=== PATIENT | female | born 1930 | race Caucasian/White ===

== ENCOUNTER 2017-02-16 14:52 | Emergency (ER) | payer OTHER, MEDICAID ==
[~2017-02-16] VITALS: Ht 149.9 cm; Wt 70.0 kg
[~2017-02-16 14:52] MED LIST: ALBU8.5H3 INH; ALPR-475 PO; AMLO2.5T PO; ASPI-515 PO; ASPI325T4 PO; AZIT250T89 PO; BENZ200C40 PO; BRIN10DR RIGHTEYE; BUDE10.22 INH; CHOL10002 PO; CYAN1TAB39 PO; FAMO20TA7 PO; LEVO88TA32 PO; LISI-167 PO; LISI-170 PO; LISI-424 PO; LOVA20TA2 PO; MAGN400T36 PO; MELO-184 PO; OMEP-110 PO; OXYGEN INH; PRED10TA14 PO; PRED1DRO RIGHTEYE; TIOT18CA INH; [UNRECOGNIZED DRUG - REMARK] PO
[2017-02-16 14:57] VITALS: BP 143/85
[2017-02-16] MEDS ORDERED: SODIUM CHLORIDE FLUSH 10ML SYR IVF ONE (15:30)
[2017-02-16] MEDS ORDERED: ALBUTEROL/IPRATROPIUM 2.5MG/0.5MG, 3 ML NPPB SCH (15:30)
[2017-02-16 16:03] LABS: BLOOD UREA NITROGEN 13 mg/dL (7-18)
[2017-02-16 16:08] LABS: IS PT STATUS REG ER OR PRE ER? YES
[2017-02-16] MEDS ORDERED: ALBUTEROL/IPRATROPIUM 2.5MG/0.5MG, 3 ML ONE ×2 (16:25→16:26)
== END 2017-02-16 17:04 | disposition home or self-care (01) ==
LOC: ED 16:58
DX: J45.41 Moderate persistent asthma with (acute) exacerbation (principal); I10 Essential (primary) hypertension; J44.9 Chronic obstructive pulmonary disease, unspecified; Z86.73 Personal history of transient ischemic attack (TIA), and cerebral infarction without residual deficits; E03.9 Hypothyroidism, unspecified
CPT/HCPCS: 36415; 71020; 80048; 82040; 83880; 84484; 85025; 93005; 94640; 99285; J7512

== ENCOUNTER 2018-05-09 22:58 | Observation (INO) | payer OTHER, MEDICAID ==
[~2018-05-09] VITALS: Ht 149.9 cm; Wt 72.8 kg
[~2018-05-09 22:58] MED LIST changes: -ALBU8.5H3 INH; +ALBU8.5H8 INH; -AMLO2.5T PO; +AMLO2.5T3 PO; +ASPI325T17 PO; -ASPI325T4 PO; -BENZ200C40 PO; +BENZ200C48 PO; +LATA2.5D3 RIGHTEYE; -LEVO88TA32 PO; +LEVO88TA43 PO; -MELO-184 PO; +MELO15TA24 PO; +TIMO5DRO33 RIGHTEYE; +TOBR3.5O2 EACHEYE
[2018-05-09] MEDS ORDERED: ALBUTEROL/IPRATROPIUM 2.5MG/0.5MG, 3 ML ONE (23:21)
[2018-05-09] MEDS ORDERED: methylPREDNISolone SOD SUCC 125 MG/2 ML IVP ONE (23:30)
[2018-05-09] MEDS ORDERED: SODIUM CHLORIDE FLUSH 10ML SYR IVF ONE (23:30)
[2018-05-09] MEDS ORDERED: ALBUTEROL/IPRATROPIUM 2.5MG/0.5MG, 3 ML NPPB SCH (23:30)
[2018-05-09] MEDS ORDERED: SODIUM CHLORIDE 0.9% 1,000ML IVBOLUS ONE (23:30)
[2018-05-09] MEDS ORDERED: AMLO-264 PO (23:43)
[2018-05-09] MEDS ORDERED: ASPI-650 PO (23:43)
[2018-05-09] MEDS ORDERED: methylPREDNISolone SOD SUCC 125 MG/2 ML ONE (23:46)
[2018-05-09 23:52] LABS: BASOPHILS # (AUTO) 0.02 x10^3/uL (0-0.1); BASOPHILS % (AUTO) 0 % (0-1); EOSINOPHILS % (AUTO) 1 % (1-7); LYMPHOCYTES # (AUTO) 2.36 x10^3/uL (1-3.4); LYMPHOCYTES % (AUTO) 30 % (22-44); MD NO; MEAN CORPUSCULAR HEMOGLOBIN 28.3 pg (27.0-34.8); MEAN CORPUSCULAR HGB CONC 32.8 g/dL (32.4-35.8); MEAN CORPUSCULAR VOLUME 86.4 fL (80-100); MEAN PLATELET VOLUME 8.2 fL (7.4-10.4); MONOCYTES # (AUTO) 0.65 x10^3/uL (0.2-0.8); MONOCYTES % (AUTO) 8 % (2-9); NEUTROPHILS # (AUTO) 4.67 x10^3/uL (1.8-6.8); NEUTROPHILS % (AUTO) 60 % (42-75); PLATELET COUNT 218 x10^3/uL (130-400); RED BLOOD COUNT 4.47 x10^6/uL (3.82-5.3); RED CELL DISTRIBUTION WIDTH 18.7 % (9.6-15.2)
[2018-05-09 23:55] LABS: ALBUMIN 3.4 g/dL (3.4-5.0); ANION GAP 5 mmol/L (5-15); CALCIUM 8.5 mg/dL (8.5-10.1); CHLORIDE 113 mmol/L (98-107)
[2018-05-10] LABS: ALANINE AMINOTRANSFERASE 19 U/L (12-78); ALKALINE PHOSPHATASE 69 U/L (45-117); BILIRUBIN,TOTAL 0.5 mg/dL (0.2-1.0); TOTAL PROTEIN 6.5 g/dL (6.4-8.2); TROPONIN I < 0.015 ng/mL (0.000-0.045)
[2018-05-10] MEDS ORDERED: IBUPROFEN 600 MG TABLET PO PRN (01:30)
[2018-05-10] MEDS ORDERED: POLYETHYLENE GLYCOL 17 GM PACKET PO PRN (01:30)
[2018-05-10] MEDS ORDERED: LABETALOL 5MG/ML, 20ML IVPush PRN (01:30)
[2018-05-10] MEDS ORDERED: ONDANSETRON 2MG/ML, 2ML IVPush PRN (01:30)
[2018-05-10] MEDS ORDERED: ACETAMINOPHEN 325 MG TABLET PO PRN (01:30)
[2018-05-10 01:43] VITALS: BP 114/70
[2018-05-10 02:00] VITALS: BP 114/70
[2018-05-10] MEDS ORDERED: ALBUTEROL SULFATE 2.5 MG/3 ML NPPB PRN (02:00)
[2018-05-10] MEDS ORDERED: AMLODIPINE 2.5 MG TABLET PO ONE (02:30)
[2018-05-10] MEDS: HEPARIN 5,000 UNITS/ML, 1ML SQ SCH ×3 (02:35→18:26)
[2018-05-10] MEDS: LEVOTHYROXINE 100 MCG TABLET PO SCH (05:25)
[2018-05-10] MEDS: ASPIRIN 325 MG TABLET EC PO SCH (05:25)
[2018-05-10 05:38] LABS: TROPONIN I 0.015 ng/mL (0.000-0.045)
[2018-05-10] MEDS ORDERED: LEVOTHYROXINE 88 MCG TABLET PO SCH (06:00)
[2018-05-10] MEDS ORDERED: ALBUTEROL SULFATE 2.5 MG/3 ML NPPB SCH (07:00)
[2018-05-10 07:34] VITALS: BP 101/61
[2018-05-10] MEDS: MAGNESIUM OXIDE 400 MG TABLET PO SCH (09:57)
[2018-05-10] MEDS: OMEPRAZOLE 20 MG CAPSULE.DR PO SCH (09:57)
[2018-05-10] MEDS: SENNA/DOCUSATE TABLET PO SCH (09:57)
[2018-05-10] MEDS: CHOLECALCIFEROL 1,000 UNIT TABLET PO SCH (09:57)
[2018-05-10] MEDS: FLUTICASONE/VILANTEROL 100-25MCG/INH INH SCH (09:58)
[2018-05-10] MEDS: predniSOLONE OPHTH. 1%,1ML RIGHTEYE SCH ×2 (09:58→21:00)
[2018-05-10] MEDS: ALBUTEROL SULFATE 2.5 MG/3 ML NPPB SCH ×2 (13:43→20:12)
[2018-05-10 15:01] VITALS: BP 124/70
[2018-05-10 16:06] LABS: TROPONIN I < 0.015 ng/mL (0.000-0.045)
[2018-05-10] MEDS: BENZONATATE 100 MG CAPSULE PO SCH ×2 (17:02→21:07)
[2018-05-10 18:59] VITALS: BP 121/76
[2018-05-10] MEDS ORDERED: ATORVASTATIN 10 MG TABLET PO SCH (21:00)
[2018-05-10] MEDS ORDERED: AMLODIPINE 2.5 MG TABLET PO SCH (21:00)
[2018-05-10] MEDS ORDERED: FAMOTIDINE 20 MG TABLET PO SCH (21:00)
[2018-05-10] MEDS: OFLOXACIN OPHTH 0.3%, 5ML EACHEYE SCH (21:13)
[2018-05-11 00:17] VITALS: BP 119/62
[2018-05-11] MEDS: HEPARIN 5,000 UNITS/ML, 1ML SQ SCH ×2 (02:46→09:29)
[2018-05-11] MEDS: LEVOTHYROXINE 100 MCG TABLET PO SCH (05:41)
[2018-05-11] MEDS: ASPIRIN 325 MG TABLET EC PO SCH (05:41)
[2018-05-11] MEDS: OFLOXACIN OPHTH 0.3%, 5ML EACHEYE SCH ×2 (05:46→12:53)
[2018-05-11 07:46] VITALS: BP 125/77
[2018-05-11] MEDS: ALBUTEROL SULFATE 2.5 MG/3 ML NPPB SCH ×2 (08:23→11:39)
[2018-05-11] MEDS: predniSOLONE OPHTH. 1%,1ML RIGHTEYE SCH (09:00)
[2018-05-11] MEDS: SENNA/DOCUSATE TABLET PO SCH (09:00)
[2018-05-11] MEDS: BENZONATATE 100 MG CAPSULE PO SCH (09:29)
[2018-05-11] MEDS: OMEPRAZOLE 20 MG CAPSULE.DR PO SCH (09:30)
[2018-05-11] MEDS: CHOLECALCIFEROL 1,000 UNIT TABLET PO SCH (09:30)
[2018-05-11] MEDS: FLUTICASONE/VILANTEROL 100-25MCG/INH INH SCH (09:30)
[2018-05-11] MEDS: MAGNESIUM OXIDE 400 MG TABLET PO SCH (09:30)
[2018-05-11] MEDS ORDERED: BENZ100C PO (10:53)
[2018-05-11] MEDS ORDERED: PRED20TA PO (10:53)
== END 2018-05-11 14:50 | disposition home or self-care (01) ==
LOC: ED 23:59 → 3NE 05-10 01:07 → DCLOUNGE 05-11 14:34
PROVIDERS: ADMIT Family Medicine; ATTEND Family Medicine
DX: J44.1 Chronic obstructive pulmonary disease with (acute) exacerbation (principal); I10 Essential (primary) hypertension; J96.21 Acute and chronic respiratory failure with hypoxia; E78.5 Hyperlipidemia, unspecified; E03.9 Hypothyroidism, unspecified; K21.9 Gastro-esophageal reflux disease without esophagitis; J45.909 Unspecified asthma, uncomplicated; H40.9 Unspecified glaucoma; Z82.49 Family history of ischemic heart disease and other diseases of the circulatory system; Z86.73 Personal history of transient ischemic attack (TIA), and cerebral infarction without residual deficits; Z87.891 Personal history of nicotine dependence; Z79.899 Other long term (current) drug therapy
CPT/HCPCS: 36415; 71045; 80053; 83880; 84484; 85025; 93005; 93306; 94640; 96372; 96374; 97163; 97165; 99285; G0378; J1644; J2930; J7030; J7512; J7613; J7620

== ENCOUNTER 2018-06-03 13:57 | Observation (INO) | payer OTHER, MEDICAID ==
[~2018-06-03] VITALS: Ht 144.8 cm; Wt 73.3 kg
[~2018-06-03 13:57] MED LIST changes: +AMLO-264 PO; +ASPI-650 PO; +BENZ100C PO; +PRED20TA PO
[2018-06-03 14:35] LABS: BASOPHILS # (AUTO) 0.06 x10^3/uL (0-0.1); BASOPHILS % (AUTO) 1 % (0-1); EOSINOPHILS # (AUTO) 0.18 x10^3/uL (0-0.4); EOSINOPHILS % (AUTO) 2 % (1-7); LYMPHOCYTES # (AUTO) 2.57 x10^3/uL (1-3.4); LYMPHOCYTES % (AUTO) 30 % (22-44); MD NO; MEAN CORPUSCULAR HEMOGLOBIN 28.2 pg (27.0-34.8); MEAN CORPUSCULAR HGB CONC 32.3 g/dL (32.4-35.8); MEAN CORPUSCULAR VOLUME 87.3 fL (80-100); MEAN PLATELET VOLUME 8.4 fL (7.4-10.4); MONOCYTES # (AUTO) 0.54 x10^3/uL (0.2-0.8); MONOCYTES % (AUTO) 6 % (2-9); NEUTROPHILS # (AUTO) 5.15 x10^3/uL (1.8-6.8); NEUTROPHILS % (AUTO) 61 % (42-75); PLATELET COUNT 214 x10^3/uL (130-400); RED BLOOD COUNT 4.78 x10^6/uL (3.82-5.3); RED CELL DISTRIBUTION WIDTH 18.5 % (9.6-15.2)
[2018-06-03 14:43] LABS: INTERNATIONAL NORMALIZED RATIO 0.97 (0.93-1.1)
[2018-06-03] MEDS ORDERED: OMNIPAQUE 350 MG/ML, 100ML BOTTLE ONE (15:05)
[2018-06-03] MEDS ORDERED: SODIUM CHLORIDE FLUSH 10ML SYR IVF PRN (15:30)
[2018-06-03 16:13] VITALS: BP 155/68
[2018-06-03] MEDS ORDERED: ENALAPRILAT 1.25 MG/ML, 2ML IVPush PRN (16:30)
[2018-06-03] MEDS ORDERED: DOCUSATE 100 MG CAPSULE PO PRN (16:30)
[2018-06-03] MEDS: HEPARIN 5,000 UNITS/ML, 1ML SQ SCH (18:09)
[2018-06-03 19:57] VITALS: BP 122/71
[2018-06-03] MEDS: predniSOLONE OPHTH. 1%,1ML RIGHTEYE SCH (20:25)
[2018-06-03] MEDS: BUDESONIDE 0.5 MG/2 ML INHA HHN SCH (20:51)
[2018-06-03] MEDS: ALBUTEROL SULFATE 2.5 MG/3 ML NPPB PRN (20:52)
[2018-06-03] MEDS ORDERED: TEMPLATE NON-FORMULARY MED. ([Oxygen] 3 L) INH SCH (21:00)
[2018-06-03] MEDS ORDERED: AMLODIPINE 2.5 MG TABLET PO SCH (21:00)
[2018-06-03] MEDS ORDERED: FAMOTIDINE 20 MG TABLET PO SCH (21:00)
[2018-06-03] MEDS ORDERED: ATORVASTATIN 40 MG TABLET PO SCH (21:00)
[2018-06-04] MEDS: HEPARIN 5,000 UNITS/ML, 1ML SQ SCH (01:20)
[2018-06-04 02:34] VITALS: BP 95/60
[2018-06-04] MEDS ORDERED: LEVOTHYROXINE 100 MCG TABLET PO SCH (06:00)
[2018-06-04] MEDS ORDERED: LEVOTHYROXINE 88 MCG TABLET PO SCH (06:00)
[2018-06-04 06:21] LABS: BASOPHILS # (AUTO) 0.02 x10^3/uL (0-0.1); BASOPHILS % (AUTO) 0 % (0-1); EOSINOPHILS # (AUTO) 0.15 x10^3/uL (0-0.4); EOSINOPHILS % (AUTO) 3 % (1-7); LYMPHOCYTES # (AUTO) 2.51 x10^3/uL (1-3.4); LYMPHOCYTES % (AUTO) 42 % (22-44); MD NO; MEAN CORPUSCULAR HEMOGLOBIN 28.8 pg (27.0-34.8); MEAN CORPUSCULAR HGB CONC 32.6 g/dL (32.4-35.8); MEAN CORPUSCULAR VOLUME 88.2 fL (80-100); MEAN PLATELET VOLUME 8.6 fL (7.4-10.4); MONOCYTES # (AUTO) 0.48 x10^3/uL (0.2-0.8); MONOCYTES % (AUTO) 8 % (2-9); NEUTROPHILS # (AUTO) 2.88 x10^3/uL (1.8-6.8); NEUTROPHILS % (AUTO) 48 % (42-75); PLATELET COUNT 198 x10^3/uL (130-400); RED BLOOD COUNT 4.35 x10^6/uL (3.82-5.3); RED CELL DISTRIBUTION WIDTH 18.4 % (9.6-15.2)
[2018-06-04 06:27] LABS: CHLORIDE 109 mmol/L (98-107)
[2018-06-04 06:35] LABS: ANION GAP 8 mmol/L (5-15); CALCIUM 8.6 mg/dL (8.5-10.1); CHOL/HDL RATIO 1.9; CHOLESTEROL, TOTAL 158 mg/dL (140-239); CREATININE 0.59 mg/dL (0.55-1.02); HDL CHOL % 53 % (28-40); HDL CHOLESTEROL (DIRECT) 83 mg/dL (40-60); LDL CHOLESTEROL,CALCULATED 62 mg/dL (54-169); LDL/HDL RATIO 0.7 (0.5-3.0); TRIGLYCERIDES 65 mg/dL (50-200); VLDL CHOLESTEROL 13 mg/dL (0-25)
[2018-06-04] MEDS: BUDESONIDE 0.5 MG/2 ML INHA HHN SCH (07:25)
[2018-06-04] MEDS: ALBUTEROL SULFATE 2.5 MG/3 ML NPPB PRN (07:25)
[2018-06-04] MEDS ORDERED: OMEPRAZOLE 20 MG CAPSULE.DR PO SCH (07:30)
[2018-06-04] MEDS ORDERED: PANTOPROZOLE 40MG TABLET PO SCH (07:30)
[2018-06-04 08:09] VITALS: BP 125/73
[2018-06-04] MEDS ORDERED: IBUPROFEN 200 MG TABLET PO ONE (08:30)
[2018-06-04] MEDS ORDERED: ASPIRIN 325 MG TABLET PO SCH (09:00)
[2018-06-04] MEDS ORDERED: CLOPIDOGREL 75 MG TABLET PO SCH (09:00)
[2018-06-04] MEDS ORDERED: ASPIRIN 81 MG TABLET EC PO SCH (09:00)
[2018-06-04] MEDS ORDERED: GADOBUTROL 7.5 MMOL/7.5 ML PFS ONE (10:38)
[2018-06-04] MEDS: predniSOLONE OPHTH. 1%,1ML RIGHTEYE SCH (11:13)
[2018-06-04] MEDS ORDERED: ATOR40TA78 PO (13:07)
[2018-06-04] MEDS ORDERED: ASPI-621 PO (13:07)
[2018-06-04] MEDS ORDERED: PANT40TA5 PO (13:07)
[2018-06-04] MEDS ORDERED: CLOP75TA PO (13:07)
[2018-06-04] MEDS ORDERED: AMLO2.5T3 PO (13:07)
[2018-06-04 14:24] VITALS: BP 138/60
[2018-06-05] MEDS ORDERED: predniSOLONE OPHTH. 1%,1ML EACHEYE SCH (09:00)
== END 2018-06-04 14:56 | disposition home or self-care (01) ==
LOC: ED 14:57 → INTOOBSV 15:28 → 4WST 15:28 → DCLOUNGE 06-04 14:45
PROVIDERS: ADMIT Family Medicine; ATTEND Family Medicine
DX: G45.9 Transient cerebral ischemic attack, unspecified (principal); I11.0 Hypertensive heart disease with heart failure; I50.9 Heart failure, unspecified; E03.9 Hypothyroidism, unspecified; F02.80 Dementia in other diseases classified elsewhere, unspecified severity, without behavioral disturbance, psychotic disturbance, mood disturbance, and anxiety; F41.9 Anxiety disorder, unspecified; J44.9 Chronic obstructive pulmonary disease, unspecified; K21.9 Gastro-esophageal reflux disease without esophagitis; Z86.73 Personal history of transient ischemic attack (TIA), and cerebral infarction without residual deficits; Z87.891 Personal history of nicotine dependence
CPT/HCPCS: 36415; 70450; 70496; 70498; 70553; 80047; 80048; 80061; 82962; 85025; 85610; 85730; 93005; 94640; 96372; 97161; 97166; 97535; 99285; A9585; G0378; G8978; G8979; G8980; J1644; J7613; J7626; Q9967

== ENCOUNTER 2019-02-24 16:19 | Emergency (ER) | payer MEDICAID, MEDICARE ==
[~2019-02-24] VITALS: Ht 144.8 cm; Wt 71.4 kg
[~2019-02-24 16:19] MED LIST changes: -AMLO2.5T3 PO; +AMLO2.5T5 PO; +ASPI81TA45 PO; +ATOR40TA78 PO; +CLOP75TA PO; +PANT40TA5 PO
--- NOTE | 2019-02-24 16:30 | NUR ---
PT ARRIVED VIA WHEELCHAIR TO ROOM 24. PT C/O LLE PAIN & WEAKNESS FOR "A WHILE", STARTED 6 MONTHS AGO & WORSE THE PAST 2 DAYS. PT ATTACHED TO MONITOR AND DRESSED IN GOWN. MD AT BEDSIDE FOR EXAM. AAO X 4, VSS, DAUGHTER AT BEDSIDE, CALL LIGHT WITHIN REACH.
--- NOTE | 2019-02-24 16:59 | NUR ---
LAB AT BEDSIDE.
--- NOTE | 2019-02-24 17:02 | NUR ---
PT TO XRAY.
[2019-02-24 17:12] LABS: BASOPHILS # (AUTO) 0.02 x10^3/uL (0-0.1); BASOPHILS % (AUTO) 0 % (0-1); EOSINOPHILS # (AUTO) 0.08 x10^3/uL (0-0.4); EOSINOPHILS % (AUTO) 2 % (1-7); LYMPHOCYTES # (AUTO) 2.25 x10^3/uL (1-3.4); LYMPHOCYTES % (AUTO) 42 % (22-44); MD NO; MEAN CORPUSCULAR HEMOGLOBIN 29.3 pg (27.0-34.8); MEAN CORPUSCULAR HGB CONC 32.5 g/dL (32.4-35.8); MEAN PLATELET VOLUME 7.8 fL (7.4-10.4); MONOCYTES # (AUTO) 0.36 x10^3/uL (0.2-0.8); MONOCYTES % (AUTO) 7 % (2-9); NEUTROPHILS # (AUTO) 2.68 x10^3/uL (1.8-6.8); NEUTROPHILS % (AUTO) 50 % (42-75); PLATELET COUNT 227 x10^3/uL (130-400); RED BLOOD COUNT 4.39 x10^6/uL (3.82-5.3); RED CELL DISTRIBUTION WIDTH 14.8 % (9.6-15.2)
--- NOTE | 2019-02-24 17:18 | NUR ---
PT BACK FROM XRAY, ATTACHED TO MONITOR, VSS, FAMILY AT BEDSIDE AND CALL LIGHT WITHIN REACH.
[2019-02-24 17:19] LABS: ALBUMIN 3.4 g/dL (3.4-5.0); ANION GAP 7 mmol/L (5-15); CALCIUM 8.7 mg/dL (8.5-10.1); CHLORIDE 108 mmol/L (98-107); CREATININE 0.59 mg/dL (0.55-1.02)
--- NOTE | 2019-02-24 17:50 | NUR ---
US AT BEDSIDE.
--- NOTE | 2019-02-24 18:00 | NUR ---
MD AT BEDSIDE TO UPDATE PT AND FAMILY ON POC.
[2019-02-24 18:27] VITALS: BP 152/75
--- NOTE | 2019-02-24 18:28 | NUR ---
Patient/Caregiver given discharge instructions and they have confirmed that they understand the instructions. Patient ambulatory with steady gait.
== END 2019-02-24 18:29 | disposition home or self-care (01) ==
LOC: ED 18:18
DX: M16.0 Bilateral primary osteoarthritis of hip (principal); M17.11 Unilateral primary osteoarthritis, right knee; J44.9 Chronic obstructive pulmonary disease, unspecified; E03.9 Hypothyroidism, unspecified; I11.9 Hypertensive heart disease without heart failure; Z87.891 Personal history of nicotine dependence; Z86.73 Personal history of transient ischemic attack (TIA), and cerebral infarction without residual deficits
CPT/HCPCS: 36415; 80048; 82040; 85025; 99284

== ENCOUNTER 2020-02-04 11:33 | Emergency (ER) | payer MEDICARE, MEDICAID ==
[~2020-02-04] VITALS: Ht 149.9 cm; Wt 69.5 kg
[~2020-02-04 11:33] MED LIST changes: -ALPR-475 PO; +ALPR0.5T7 PO
--- NOTE | 2020-02-04 11:50 | NUR ---
PT WC'D TO ROOM 15 W/ C/O DIZZINESS/LIGHTHEADEDNESS STARTED LAST NOC. STATES SHE FELT A LITTLE DIZZY THEN AND WENT TO SLEEP AND WOKE UP THIS AM AT 0700 W/ DIZZINESS/LIGHTHEADEDNESS. NOW HAS C/O NAUSEA. NO EMSIS. DENIES VOMITING. DENIES ABD PAIN/URINARY SX. PT RESTING ON GURNEY. NADN. MONITORS APPLIED. VSS. FAMILY AT BEDSIDE.
--- NOTE | 2020-02-04 11:56 | NUR ---
PT AWARE OF NEED FOR UA. REFUSES STRAIGHT CATH DESPITE EDUCATION ON IT BEING A BETTER SPECIMEN. PT EDUCATED ON NEED FOR UA SAMPLE AND HOW TO PROVIDE CLEAN CATCH SPECIMEN. PT VERBALIZES UNDERSTANDING.
[2020-02-04 12:11] LABS: BASOPHILS # (AUTO) 0.04 x10^3/uL (0-0.1); BASOPHILS % (AUTO) 1 % (0-1); EOSINOPHILS # (AUTO) 0.05 x10^3/uL (0-0.4); EOSINOPHILS % (AUTO) 1 % (1-7); LYMPHOCYTES # (AUTO) 2.62 x10^3/uL (1-3.4); LYMPHOCYTES % (AUTO) 38 % (22-44); MD NO; MEAN CORPUSCULAR HEMOGLOBIN 28.2 pg (27.0-34.8); MEAN CORPUSCULAR HGB CONC 32.4 g/dL (32.4-35.8); MEAN CORPUSCULAR VOLUME 87.2 fL (80-100); MEAN PLATELET VOLUME 7.8 fL (7.4-10.4); MONOCYTES # (AUTO) 0.54 x10^3/uL (0.2-0.8); MONOCYTES % (AUTO) 8 % (2-9); NEUTROPHILS # (AUTO) 3.73 x10^3/uL (1.8-6.8); NEUTROPHILS % (AUTO) 53 % (42-75); PLATELET COUNT 260 x10^3/uL (130-400); RED BLOOD COUNT 5.06 x10^6/uL (3.82-5.3); RED CELL DISTRIBUTION WIDTH 16.6 % (9.6-15.2)
[2020-02-04] MEDS ORDERED: ONDANSETRON 2MG/ML, 2ML ONE (12:17)
[2020-02-04] MEDS ORDERED: hydrALAzine 20 MG/ML, 1ML ONE (12:17)
[2020-02-04 12:22] LABS: ALANINE AMINOTRANSFERASE 25 U/L (12-78); ALBUMIN 3.4 g/dL (3.4-5.0); ANION GAP 4 mmol/L (5-15); CHLORIDE 107 mmol/L (98-107)
[2020-02-04 12:27] LABS: ALKALINE PHOSPHATASE 56 U/L (45-117); BILIRUBIN,TOTAL 0.4 mg/dL (0.2-1.0); TOTAL PROTEIN 6.7 g/dL (6.4-8.2); TROPONIN I < 0.015 ng/mL (0.000-0.045)
[2020-02-04] MEDS ORDERED: SODIUM CHLORIDE 0.9% 1,000ML IVBOLUS ONE (12:30)
[2020-02-04] MEDS ORDERED: ONDANSETRON 2MG/ML, 2ML IVPush ONE (12:30)
[2020-02-04] MEDS ORDERED: hydrALAzine 20 MG/ML, 1ML IV ONE (12:30)
--- NOTE | 2020-02-04 12:40 | NUR ---
BREAK Rn: PT ASSISTED BACK TO [facility]. PT AO X 4. SKIN WARM AND DRY. RESP EVEN AND UNLABORED. PT PLACED ON CONT BP, CARDIAC AND O2 MONITORS. FAMILY AT BEDSIDE. PT AND FAMILY AWARE WE ARE WAITING FOR LAB/IMAGING RESULTS. CALL LIGHT WITHIN REACH.
[2020-02-04 12:42] LABS: MICROSCOPIC NOT IND
[2020-02-04 13:00] VITALS: BP 133/61
== END 2020-02-04 13:57 | disposition home or self-care (01) ==
LOC: ED 12:46
DX: R53.1 Weakness (principal); R42 Dizziness and giddiness; R11.0 Nausea; R94.31 Abnormal electrocardiogram [ECG] [EKG]; Z86.73 Personal history of transient ischemic attack (TIA), and cerebral infarction without residual deficits
CPT/HCPCS: 36415; 71045; 74018; 80053; 81003; 84484; 85025; 93005; 96361; 96374; 96375; 99285; J0360; J2405; J7030

== ENCOUNTER → 2020-03-04 | Outpatient (CLI) | payer MEDICARE, MEDICAID | END | disposition home or self-care (01) | LOC: CFH 09:48 | PROVIDERS: ATTEND Nurse Practitioner | DX: S70.02XA Contusion of left hip, initial encounter (principal); M25.851 Other specified joint disorders, right hip; M51.36 Other intervertebral disc degeneration, lumbar region; X58.XXXA Exposure to other specified factors, initial encounter; Y93.89 Activity, other specified; Y92.89 Other specified places as the place of occurrence of the external cause; Y99.8 Other external cause status | CPT/HCPCS: 72195 ==